=== PATIENT | male | born 1960 | race Caucasian/White ===

== ENCOUNTER → 2017-07-27 | Outpatient (CLI) | payer BC | END | disposition home or self-care (01) | LOC: RAH 13:43 | PROVIDERS: ATTEND Physical Medicine & Rehabilitation | DX: M47.896 Other spondylosis, lumbar region (principal) | CPT/HCPCS: 72114 ==

== ENCOUNTER → 2018-08-22 | Outpatient (CLI) | payer BC | END | disposition home or self-care (01) | LOC: RAH 07:56 | PROVIDERS: ATTEND Physical Medicine & Rehabilitation | DX: M47.816 Spondylosis without myelopathy or radiculopathy, lumbar region (principal); M48.061 Spinal stenosis, lumbar region without neurogenic claudication; M48.05 Spinal stenosis, thoracolumbar region | CPT/HCPCS: 72148 ==

== ENCOUNTER → 2022-08-20 | Outpatient (CLI) | payer BC ==
[2022-08-20 16:29] LABS: CREATININE 0.9 mg/dL (0.5-1.5)
== END | disposition home or self-care (01) ==
LOC: LAB 14:06
PROVIDERS: ATTEND Internal Medicine
DX: I10 Essential (primary) hypertension (principal); I25.118 Atherosclerotic heart disease of native coronary artery with other forms of angina pectoris
CPT/HCPCS: 36415; 82565; 84520

== ENCOUNTER → 2022-08-26 | Outpatient (CLI) | payer BC ==
[~2022-08-26] MED LIST: IOHEXOL 350 MG/ML 100ML INFUS..BTL IV ONE
== END | disposition home or self-care (01) ==
LOC: RAH 08:07
PROVIDERS: ATTEND Internal Medicine
DX: I25.118 Atherosclerotic heart disease of native coronary artery with other forms of angina pectoris (principal)
CPT/HCPCS: 75574; Q9967

== ENCOUNTER 2022-09-11 14:46 | Inpatient (IN) | payer BC ==
[~2022-09-11] VITALS: Ht 182.9 cm; Wt 90.7 kg
[2022-09-11 15:15] LABS: EOSINOPHILS % (AUTO) 1.4 % (0.0-8.0); HEMATOCRIT 39.1 % (42-54); LYMPHOCYTES % (AUTO) 16.3 % (21.0-51.0); MEAN CORPUSCULAR HEMOGLOBIN 31.9 pg (27.0-33.0); MEAN CORPUSCULAR HGB CONC 35.3 g/dL (32.0-36.0); MEAN CORPUSCULAR VOLUME 90.3 fL (79-99); MONOCYTES % (AUTO) 6.3 % (3.0-13.0); NEUTROPHILS % (AUTO) 74.6 % (40.0-77.0); PLATELET COUNT (AUTO) 160 K/uL (130-400); RED BLOOD CELL COUNT(AUTO) 4.33 MIL/uL (4.50-6.20); RED CELL DISTRIBUTION WIDTH 14.4 % (11.0-15.5); WHITE BLOOD COUNT (AUTO) 7.3 K/uL (4.8-10.8)
[2022-09-11 15:33] LABS: TOTAL PROTEIN, SERUM 6.7 g/dL (6.0-8.3)
[2022-09-11 19:39] LABS: APPEARANCE,URINE CLEAR (CLEAR); BILIRUBIN,URINE NEGATIVE (NEGATIVE); COLOR,URINE YELLOW (YELLOW); GLUCOSE, URINE (UA) NEGATIVE (NEGATIVE); KETONES,URINE NEGATIVE (NEGATIVE); LEUKOCYTE ESTERASE ,URINE NEGATIVE Leu/uL (NEGATIVE); NITRATE,URINE NEGATIVE (NEGATIVE); OCCULT BLOOD,URINE NEGATIVE (NEGATIVE); PH,URINE 5.5 (5.0-8.0); PROTEIN,URINE NEGATIVE (NEGATIVE); UROBILINOGEN,URINE 3 mg/dL (0.2-1.0)
[2022-09-11] MEDS ORDERED: ASPIRIN 81MG CHEW TAB PO ONE (22:00)
[2022-09-11] MEDS ORDERED: MAGNESIUM 2GM PREMIX 50ML 50 ML IV PRN (22:00)
[2022-09-11] MEDS ORDERED: POTASSIUM CHLORIDE 10% ELIXIR 20 MEQ/15 ML UDCUP PO PRN (22:00)
[2022-09-11] MEDS ORDERED: ACETAMINOPHEN 325 MG TAB PO PRN ×2 (22:00)
[2022-09-11] MEDS ORDERED: MORPHINE 4 MG SYG IV PRN (22:00)
[2022-09-11] MEDS ORDERED: ONDANSETRON 4MG INJ IV PRN (22:00)
[2022-09-11] MEDS ORDERED: MORPHINE 2 MG SYG IV PRN (22:00)
[2022-09-11] MEDS ORDERED: POTASSIUM CHLORIDE 20MEQ/100ML 100 ML IV PRN (22:00)
[2022-09-11] MEDS ORDERED: KCL 20 MEQ ERTAB PO PRN (22:00)
[2022-09-11] MEDS: NITROGLYCERIN 1GM OINT 1 INCH/1GM TD SCH (23:16)
[2022-09-11 23:40] VITALS: BP 140/51; PULSE 54; RESP 20
[2022-09-12] MEDS ORDERED: ASPI-1443 PO (00:15)
[2022-09-12] MEDS ORDERED: METO-408 PO (00:15)
[2022-09-12] MEDS ORDERED: LOSA50TA64 PO (00:15)
[2022-09-12] MEDS ORDERED: CLOP75TA32 PO (00:15)
[2022-09-12] MEDS ORDERED: ROSU5TAB12 PO (00:15)
[2022-09-12] MEDS ORDERED: ISOS60TA77 PO (00:15)
[2022-09-12 04:00] VITALS: BP 150/55; PULSE 55; RESP 20
[2022-09-12] MEDS: NITROGLYCERIN 1GM OINT 1 INCH/1GM TD SCH (05:27)
[2022-09-12 06:22] LABS: BASOPHILS % (AUTO) 1.4 % (0.0-5.0); EOSINOPHILS % (AUTO) 2.1 % (0.0-8.0); HEMATOCRIT 38.1 % (42-54); LYMPHOCYTES % (AUTO) 24.5 % (21.0-51.0); MEAN CORPUSCULAR HEMOGLOBIN 31.8 pg (27.0-33.0); MEAN CORPUSCULAR HGB CONC 35.2 g/dL (32.0-36.0); MEAN CORPUSCULAR VOLUME 90.5 fL (79-99); MONOCYTES % (AUTO) 10.5 % (3.0-13.0); NEUTROPHILS % (AUTO) 60.8 % (40.0-77.0); PLATELET COUNT (AUTO) 136 K/uL (130-400); RED BLOOD CELL COUNT(AUTO) 4.21 MIL/uL (4.50-6.20); RED CELL DISTRIBUTION WIDTH 14.6 % (11.0-15.5); WHITE BLOOD COUNT (AUTO) 4.3 K/uL (4.8-10.8)
[2022-09-12 06:39] LABS: MAGNESIUM 2.2 mg/dL (1.80-2.40); PHOSPHORUS 3.7 mg/dL (2.5-4.9); POTASSIUM 3.9 mmol/L (3.5-5.1)
[2022-09-12 07:41] VITALS: BP 131/52; PULSE 57; RESP 20
[2022-09-12] MEDS: METOPROLOL TARTRATE 25 MG TAB PO SCH ×2 (08:11→20:48)
[2022-09-12] MEDS: ENOXAPARIN SODIUM 40 MG/0.4 ML SYRINGE SQ SCH (08:21)
[2022-09-12] MEDS: FAMOTIDINE 20MG VIAL IV SCH (08:23)
[2022-09-12] MEDS: ASPIRIN 81MG CHEW TAB PO SCH (08:27)
[2022-09-12] MEDS: CLOPIDOGREL 75MG TAB PO SCH (08:27)
[2022-09-12] MEDS ORDERED: LISINOPRIL 10 MG TABLET PO SCH (09:00)
[2022-09-12] MEDS: LOSARTAN 50 MG TABLET PO SCH (09:00)
[2022-09-12] MEDS ORDERED: ISOSORBIDE MONO 60MG SR TAB PO SCH (09:00)
[2022-09-12 11:21] VITALS: BP 105/60; PULSE 57; RESP 17
[2022-09-12 16:37] VITALS: BP 129/60; PULSE 55; RESP 16
[2022-09-12] MEDS: ATORVASTATIN 40 MG TABLET PO SCH (20:46)
[2022-09-13] VITALS (7 sets, daily range): BP systolic 93–114; BP diastolic 49–60; PULSE 48–114; RESP 16–20
[2022-09-13] MEDS: FAMOTIDINE 20MG VIAL IV SCH (08:35)
[2022-09-13] MEDS: ASPIRIN 81MG CHEW TAB PO SCH (08:35)
[2022-09-13] MEDS: LOSARTAN 50 MG TABLET PO SCH (08:35)
[2022-09-13] MEDS: CLOPIDOGREL 75MG TAB PO SCH (08:36)
[2022-09-13] MEDS: ISOSORBIDE MONO 60MG SR TAB PO SCH (08:38)
[2022-09-13] MEDS: METOPROLOL TARTRATE 25 MG TAB PO SCH ×2 (08:38→21:01)
[2022-09-13] MEDS: ENOXAPARIN SODIUM 40 MG/0.4 ML SYRINGE SQ SCH (08:41)
[2022-09-13] MEDS: ATORVASTATIN 40 MG TABLET PO SCH (21:01)
[2022-09-13 21:47] LABS: APPEARANCE,URINE CLEAR (CLEAR); BILIRUBIN,URINE NEGATIVE (NEGATIVE); COLOR,URINE YELLOW (YELLOW); GLUCOSE, URINE (UA) NEGATIVE (NEGATIVE); KETONES,URINE NEGATIVE (NEGATIVE); LEUKOCYTE ESTERASE ,URINE NEGATIVE Leu/uL (NEGATIVE); NITRATE,URINE NEGATIVE (NEGATIVE); OCCULT BLOOD,URINE NEGATIVE (NEGATIVE); PH,URINE 5.5 (5.0-8.0); PROTEIN,URINE NEGATIVE (NEGATIVE); UROBILINOGEN,URINE 3 mg/dL (0.2-1.0)
[2022-09-13 21:50] LABS: RBC,URINE 0-1 /HPF (0-1); SQUAMOUS EPITHELIAL CELL,UR RARE /HPF (0-2); WBC,URINE 0-1 /HPF (0-1)
[2022-09-14] VITALS (18 sets, daily range): BP systolic 99–141; BP diastolic 48–88; PULSE 47–62; RESP 16–19; O2SAT 97
[2022-09-14 03:35] LABS: BASOPHILS % (AUTO) 1.5 % (0.0-5.0); EOSINOPHILS % (AUTO) 1.8 % (0.0-8.0); LYMPHOCYTES % (AUTO) 27.1 % (21.0-51.0); MEAN CORPUSCULAR HEMOGLOBIN 31.9 pg (27.0-33.0); MEAN CORPUSCULAR HGB CONC 34.6 g/dL (32.0-36.0); MEAN CORPUSCULAR VOLUME 92.2 fL (79-99); MONOCYTES % (AUTO) 9.3 % (3.0-13.0); NEUTROPHILS % (AUTO) 59.6 % (40.0-77.0); PLATELET COUNT (AUTO) 147 K/uL (130-400); RED BLOOD CELL COUNT(AUTO) 4.23 MIL/uL (4.50-6.20); RED CELL DISTRIBUTION WIDTH 14.5 % (11.0-15.5); WHITE BLOOD COUNT (AUTO) 4.5 K/uL (4.8-10.8)
[2022-09-14 03:46] LABS: ALBUMIN 3.5 g/dL (3.5-5.0); CREATININE 1.1 mg/dL (0.5-1.5); POTASSIUM 4.5 mmol/L (3.5-5.1)
[2022-09-14 03:48] LABS: INR 0.98 (0.85-1.15); PROTHROMBIN TIME 11.4 SEC (9.6-11.6)
[2022-09-14 03:49] LABS: PARTIAL THROMBOPLASTIN TIME 26.3 SEC (26.3-35.5)
[2022-09-14] MEDS ORDERED: 0.9% NACL 500ML IV.SOLN 500 ML IV SCH (05:00)
[2022-09-14] MEDS ORDERED: FENTANYL CITRATE PF 50 MCG/1 ML 2ML VIAL ONE (08:48)
[2022-09-14] MEDS ORDERED: LIDOCAINE HCL 400MG/20ML VIAL ONE (08:48)
[2022-09-14] MEDS ORDERED: HEPARIN 10,000 UNIT/10ML (1,000 UNIT/ML) VIAL ONE (08:49)
[2022-09-14] MEDS ORDERED: IOHEXOL-350 75 ML VIAL IV ONE (08:49)
[2022-09-14] MEDS ORDERED: MIDAZOLAM HCL 1 MG/ML 2ML VIAL ONE (08:49)
[2022-09-14] MEDS ORDERED: NITROGLYCERIN 50MG VIAL ONE (08:49)
[2022-09-14] MEDS ORDERED: IOHEXOL 350 MG/ML 100ML INFUS..BTL IV ONE (08:49)
[2022-09-14] MEDS ORDERED: VERAPAMIL HCL 2.5 MG/ML VIAL ONE (08:49)
[2022-09-14] MEDS: METOPROLOL TARTRATE 25 MG TAB PO SCH ×2 (09:00→21:26)
[2022-09-14] MEDS: ASPIRIN 81MG CHEW TAB PO SCH (09:00)
[2022-09-14] MEDS: ENOXAPARIN SODIUM 40 MG/0.4 ML SYRINGE SQ SCH (09:00)
[2022-09-14] MEDS ORDERED: 0.9%NACL 1000ML 1,000 ML IV SCH (10:30)
[2022-09-14] MEDS: ISOSORBIDE MONO 60MG SR TAB PO SCH (11:27)
[2022-09-14] MEDS: FAMOTIDINE 20MG VIAL IV SCH (11:27)
[2022-09-14] MEDS: LOSARTAN 50 MG TABLET PO SCH (11:27)
[2022-09-14 14:41] LABS: ABG BASE EXCESS -0.7 mmol/L (-2.0-3.0); ABG HCO3 23.2 mmol/L (21.0-28.0); ABG OXYGEN SATURATION 95.8 % (95.0-99.0); ABG PCO2 36 mmHg (35-48)
[2022-09-14] MEDS: ATORVASTATIN 40 MG TABLET PO SCH (21:24)
[2022-09-15] VITALS (7 sets, daily range): BP systolic 109–123; BP diastolic 53–68; PULSE 52–61; RESP 17–20; O2SAT 97
[2022-09-15 05:59] LABS: BASOPHILS % (AUTO) 1.1 % (0.0-5.0); EOSINOPHILS % (AUTO) 1.9 % (0.0-8.0); HEMATOCRIT 39.1 % (42-54); LYMPHOCYTES % (AUTO) 21.9 % (21.0-51.0); MEAN CORPUSCULAR HEMOGLOBIN 31.6 pg (27.0-33.0); MEAN CORPUSCULAR HGB CONC 34.8 g/dL (32.0-36.0); MEAN CORPUSCULAR VOLUME 90.9 fL (79-99); MONOCYTES % (AUTO) 9.7 % (3.0-13.0); PLATELET COUNT (AUTO) 137 K/uL (130-400); RED CELL DISTRIBUTION WIDTH 14.6 % (11.0-15.5); WHITE BLOOD COUNT (AUTO) 4.7 K/uL (4.8-10.8)
[2022-09-15 06:21] LABS: ALBUMIN 3.6 g/dL (3.5-5.0); POTASSIUM 4.5 mmol/L (3.5-5.1); TOTAL PROTEIN, SERUM 6.2 g/dL (6.0-8.3)
[2022-09-15] MEDS: METOPROLOL TARTRATE 25 MG TAB PO SCH ×2 (09:00→20:57)
[2022-09-15] MEDS: ENOXAPARIN SODIUM 40 MG/0.4 ML SYRINGE SQ SCH (09:56)
[2022-09-15] MEDS: LOSARTAN 50 MG TABLET PO SCH (09:56)
[2022-09-15] MEDS: FAMOTIDINE 20MG VIAL IV SCH (09:56)
[2022-09-15] MEDS: ASPIRIN 81MG CHEW TAB PO SCH (09:56)
[2022-09-15] MEDS: ISOSORBIDE MONO 60MG SR TAB PO SCH (09:56)
[2022-09-15] MEDS: ATORVASTATIN 40 MG TABLET PO SCH (20:55)
[2022-09-16 05:00] VITALS: BP 123/49; PULSE 57; RESP 17
[2022-09-16 05:38] LABS: EOSINOPHILS % (AUTO) 1.7 % (0.0-8.0); HEMATOCRIT 40.1 % (42-54); LYMPHOCYTES % (AUTO) 19.2 % (21.0-51.0); MEAN CORPUSCULAR HEMOGLOBIN 31.9 pg (27.0-33.0); MEAN CORPUSCULAR HGB CONC 34.4 g/dL (32.0-36.0); MEAN CORPUSCULAR VOLUME 92.6 fL (79-99); NEUTROPHILS % (AUTO) 68.5 % (40.0-77.0); PLATELET COUNT (AUTO) 149 K/uL (130-400); RED BLOOD CELL COUNT(AUTO) 4.33 MIL/uL (4.50-6.20); RED CELL DISTRIBUTION WIDTH 14.5 % (11.0-15.5); WHITE BLOOD COUNT (AUTO) 5.2 K/uL (4.8-10.8)
[2022-09-16 06:03] LABS: ALBUMIN 3.6 g/dL (3.5-5.0); CREATININE 0.9 mg/dL (0.5-1.5); POTASSIUM 4.1 mmol/L (3.5-5.1); TOTAL PROTEIN, SERUM 6.5 g/dL (6.0-8.3)
[2022-09-16 08:00] VITALS: BP 136/74; PULSE 58; RESP 18
[2022-09-16 08:15] VITALS: O2SAT 97
[2022-09-16] MEDS: METOPROLOL TARTRATE 25 MG TAB PO SCH ×3 (09:37→20:12)
[2022-09-16] MEDS: ISOSORBIDE MONO 60MG SR TAB PO SCH (09:37)
[2022-09-16] MEDS: LOSARTAN 50 MG TABLET PO SCH (09:38)
[2022-09-16] MEDS: ASPIRIN 81MG CHEW TAB PO SCH (09:38)
[2022-09-16] MEDS: ENOXAPARIN SODIUM 40 MG/0.4 ML SYRINGE SQ SCH (09:39)
[2022-09-16] MEDS: FAMOTIDINE 20MG VIAL IV SCH (09:39)
[2022-09-16] MEDS ORDERED: CEFAZOLIN SODIUM 1 GM VIAL IVPB SCH (12:00)
[2022-09-16 12:01] VITALS: BP 145/76; PULSE 61; RESP 18
[2022-09-16 16:00] VITALS: BP 112/58; PULSE 54; RESP 18
[2022-09-16 20:00] VITALS: BP 116/58; PULSE 54; RESP 19; O2SAT 98
[2022-09-16] MEDS: ATORVASTATIN 40 MG TABLET PO SCH (20:05)
[2022-09-17] VITALS (54 sets, daily range): BP systolic 97–157; BP diastolic 47–140; PULSE 52–90; RESP 4–23; TEMP 97.7–100.2; O2SAT 96–100
[2022-09-17 05:47] LABS: HEMATOCRIT 40.7 % (42-54); MEAN CORPUSCULAR HEMOGLOBIN 31.6 pg (27.0-33.0); MEAN CORPUSCULAR HGB CONC 34.4 g/dL (32.0-36.0); MEAN CORPUSCULAR VOLUME 91.9 fL (79-99); RED BLOOD CELL COUNT(AUTO) 4.43 MIL/uL (4.50-6.20); RED CELL DISTRIBUTION WIDTH 14.8 % (11.0-15.5); WHITE BLOOD COUNT (AUTO) 5.1 K/uL (4.8-10.8)
[2022-09-17 05:54] LABS: INR 0.98 (0.85-1.15); PROTHROMBIN TIME 11.4 SEC (9.6-11.6)
[2022-09-17 05:55] LABS: PARTIAL THROMBOPLASTIN TIME 26.8 SEC (26.3-35.5)
[2022-09-17 05:57] LABS: POTASSIUM 4.3 mmol/L (3.5-5.1)
[2022-09-17] MEDS ORDERED: CEFAZOLIN SODIUM 1 GM VIAL IVPB SCH (06:00)
[2022-09-17 06:01] LABS: ALBUMIN 3.6 g/dL (3.5-5.0); TOTAL PROTEIN, SERUM 6.7 g/dL (6.0-8.3)
[2022-09-17 06:08] LABS: HEMOGLOBIN A1C 4.6 % (4.0-6.0)
[2022-09-17] MEDS ORDERED: EPINEPHRINE PF 1MG (1:1,000) 10 MG in 0.9% NACL 250ML 240 ML IV PRN ×2 (08:00→08:30)
[2022-09-17] MEDS ORDERED: NOREPINEPHRINE BITARTRATE 8 MG in DEXTROSE 5%-WATER 250 ML IV PRN (08:00)
[2022-09-17] MEDS ORDERED: AMINOCAPROIC ACID 5,000MG VIAL 15,000 MG in 0.9% NACL 500ML IV.SOLN 420 ML IV PRN (08:00)
[2022-09-17] MEDS ORDERED: NITROGLYCERIN 50MG/D5W 250ML 250 BOT IV SCH (08:30)
[2022-09-17] MEDS ORDERED: GLUCAGON 1MG KIT 1 MG ML IM PRN (08:30)
[2022-09-17] MEDS ORDERED: POTASSIUM PHOS 15 mMOL+NS250ML 250 ML IV PRN (08:30)
[2022-09-17] MEDS ORDERED: ALBUMIN (HUMAN) 5% 250 ML IV PRN (08:30)
[2022-09-17] MEDS ORDERED: MORPHINE 2 MG SYG IV PRN ×2 (08:30)
[2022-09-17] MEDS ORDERED: DEXTROSE 50%-WATER 50 ML DISP.SYRIN IV PRN (08:30)
[2022-09-17] MEDS ORDERED: LACTULOSE 20 GM/30 ML UDCUP PO PRN (08:30)
[2022-09-17] MEDS ORDERED: CALCIUM GLUC 1GM 1 GM in 0.9%NACL 50ML 50 ML IV PRN (08:30)
[2022-09-17] MEDS ORDERED: 0.9% NACL 500ML IV.SOLN 500 ML IV SCH (08:30)
[2022-09-17] MEDS ORDERED: AMINOCAPROIC ACID 5,000MG VIAL 15,000 MG in 0.9% NACL 250ML 250 ML IV SCH (08:30)
[2022-09-17] MEDS ORDERED: ACETAMINOPHEN 650 MG SUPPOSITORY RC PRN (08:30)
[2022-09-17] MEDS ORDERED: MAGNESIUM HYDROXIDE 30 ML/UDCUP PO PRN (08:30)
[2022-09-17] MEDS ORDERED: PROPOFOL 1000 MG/100 ML 100 ML IV PRN (08:30)
[2022-09-17] MEDS ORDERED: 0.9%NACL 10ML VIAL IVP PRN (08:30)
[2022-09-17] MEDS ORDERED: NOREPINEPHRIN 4MG/NS 250ML 250 ML IV PRN (08:30)
[2022-09-17] MEDS ORDERED: 0.9%NACL 1000ML 1,000 ML IV SCH (08:30)
[2022-09-17] MEDS ORDERED: NOREPINEPHRINE BITARTRATE 8 MG in 0.9% NACL 250ML 250 ML IV PRN (09:00)
[2022-09-17] MEDS ORDERED: ESMOLOL HCL 10 MG/ML 10 ML VIAL ONE (09:11)
[2022-09-17] MEDS ORDERED: PROTAMINE SULFATE 10 MG/ML 25ML VIAL IV ONE (09:11)
[2022-09-17] MEDS ORDERED: SODIUM BICARB 50MEQ 50ML VIAL 150 ML ONE (09:11)
[2022-09-17] MEDS ORDERED: PROPOFOL 10 MG/ML 20ML VIAL IV ONE (09:11)
[2022-09-17] MEDS ORDERED: HEPARIN 10,000 UNIT/10ML (1,000 UNIT/ML) VIAL ONE (09:11)
[2022-09-17] MEDS ORDERED: LIDOCAINE PF 100MG/5ML (2%) SYRINGE 5ML ONE (09:11)
[2022-09-17] MEDS ORDERED: NOREPINEPHRINE BITARTRATE 1 MG/1 ML ML IV ONE (09:11)
[2022-09-17] MEDS ORDERED: EPINEPHRINE PF 1MG (1:1,000) 1 MG/ML AMP ONE (09:11)
[2022-09-17] MEDS ORDERED: AMINOCAPROIC ACID 5,000MG VIAL ONE (09:11)
[2022-09-17] MEDS ORDERED: MIDAZOLAM HCL 1 MG/ML 2ML VIAL ONE (09:12)
[2022-09-17] MEDS ORDERED: FENTANYL CITRATE PF 50 MCG/1 ML 20ML VIAL IJ ONE (09:12)
[2022-09-17] MEDS ORDERED: ROCURONIUM 10MG/1ML SYR 10 MG/ML ML ONE (09:12)
[2022-09-17] MEDS ORDERED: KETAMINE 50MG/ML SYRINGE 50 MG/ML DISP.SYRIN ONE ×2 (09:21→11:51)
[2022-09-17] MEDS ORDERED: MIDAZOLAM HCL 1 MG/ML 5ML VIAL ONE (09:22)
[2022-09-17] MEDS ORDERED: CEFAZOLIN SODIUM 2 GM VIAL IVPB ONE (10:00)
[2022-09-17] MEDS ORDERED: CEFAZOLIN SODIUM 1 GM VIAL IRRIG ONE (10:10)
[2022-09-17] MEDS ORDERED: PAPAVERINE HCL 30 MG/ML 2ML VIAL IRRIG ONE (10:10)
[2022-09-17] MEDS ORDERED: GLYCOPYRROLATE 1 MG/5 ML SYRINGE ONE (11:59)
[2022-09-17] MEDS ORDERED: PROTAMINE SULFATE 10 MG/ML 5 ML VIAL ONE (11:59)
[2022-09-17] MEDS ORDERED: ASPIRIN 81MG CHEW TAB NG ONE (12:00)
[2022-09-17 12:48] LABS: ABG BASE EXCESS -1.1 mmol/L (-2.0-3.0); ABG HCO3 23.7 mmol/L (21.0-28.0); ABG OXYGEN SATURATION 99.5 % (95.0-99.0); ABG PCO2 40 mmHg (35-48)
[2022-09-17] MEDS: DOCUSATE SODIUM 100 MG CAP PO SCH ×2 (13:00→19:30)
[2022-09-17] MEDS: FAMOTIDINE 20MG VIAL IV SCH ×2 (13:00→19:30)
[2022-09-17] MEDS: SODIUM BICARB 50MEQ 50ML VIAL IV PRN ×3 (13:07→16:13)
[2022-09-17] MEDS: INSULIN REGULAR 100 UNIT in 0.9%NACL 100ML IV SCH (13:09)
[2022-09-17 13:11] LABS: HEMATOCRIT 36.1 % (42-54); MEAN CORPUSCULAR HEMOGLOBIN 32.1 pg (27.0-33.0); MEAN CORPUSCULAR HGB CONC 35.7 g/dL (32.0-36.0); MEAN CORPUSCULAR VOLUME 89.8 fL (79-99); RED BLOOD CELL COUNT(AUTO) 4.02 MIL/uL (4.50-6.20); RED CELL DISTRIBUTION WIDTH 14.6 % (11.0-15.5); WHITE BLOOD COUNT (AUTO) 19.6 K/uL (4.8-10.8)
[2022-09-17] MEDS: CEFAZOLIN SODIUM 2 GM VIAL IVPB SCH ×2 (13:11→19:31)
[2022-09-17 13:23] LABS: CREATININE 0.9 mg/dL (0.5-1.5); INR 1.07 (0.85-1.15); MAGNESIUM 1.5 mg/dL (1.80-2.40); PHOSPHORUS 4.2 mg/dL (2.5-4.9); PROTHROMBIN TIME 12.4 SEC (9.6-11.6)
[2022-09-17] MEDS: TRAMADOL HCL 50 MG TABLET PO PRN ×2 (13:56→19:30)
[2022-09-17 14:07] LABS: ABG BASE EXCESS -1.5 mmol/L (-2.0-3.0); ABG HCO3 22.8 mmol/L (21.0-28.0); ABG OXYGEN SATURATION 99.3 % (95.0-99.0); ABG PCO2 37 mmHg (35-48)
[2022-09-17 14:15] LABS: PARTIAL THROMBOPLASTIN TIME 20.2 SEC (26.3-35.5)
[2022-09-17] MEDS: POTASSIUM CHLORIDE 20MEQ/100ML 100 ML IV PRN ×2 (14:28→17:39)
[2022-09-17] MEDS: MAGNESIUM 2GM PREMIX 50ML 50 ML IV PRN (14:30)
[2022-09-17 14:59] LABS: ABG BASE EXCESS 0.6 mmol/L (-2.0-3.0); ABG HCO3 25.2 mmol/L (21.0-28.0); ABG OXYGEN SATURATION 98.7 % (95.0-99.0); ABG PCO2 40 mmHg (35-48)
[2022-09-17] MEDS: ACETAMINOPHEN 325 MG TAB PO PRN ×2 (15:47→21:59)
[2022-09-17 16:07] LABS: ABG BASE EXCESS -1.1 mmol/L (-2.0-3.0); ABG HCO3 23.5 mmol/L (21.0-28.0); ABG OXYGEN SATURATION 98.2 % (95.0-99.0); ABG PCO2 39 mmHg (35-48)
[2022-09-17 16:59] LABS: ABG BASE EXCESS 1.8 mmol/L (-2.0-3.0); ABG HCO3 26.2 mmol/L (21.0-28.0); ABG OXYGEN SATURATION 98.2 % (95.0-99.0); ABG PCO2 40 mmHg (35-48)
[2022-09-17 17:02] LABS: ABG HCO3 26.3 mmol/L (21.0-28.0); ABG OXYGEN SATURATION 98.3 % (95.0-99.0); ABG PCO2 40 mmHg (35-48)
[2022-09-17 17:36] LABS: MAGNESIUM 2.1 mg/dL (1.80-2.40); POTASSIUM 3.6 mmol/L (3.5-5.1)
[2022-09-17] MEDS: HYDROCODONE/ACETAMINOPHEN 10/325 MG TAB PO PRN (18:28)
[2022-09-17 18:30] LABS: ABG BASE EXCESS 2.5 mmol/L (-2.0-3.0); ABG HCO3 27.6 mmol/L (21.0-28.0); ABG OXYGEN SATURATION 96.1 % (95.0-99.0); ABG PCO2 44 mmHg (35-48)
[2022-09-18] VITALS (73 sets, daily range): BP systolic 99–271; BP diastolic 43–250; PULSE 56–87; RESP 5–76; TEMP 100–100.2; O2SAT 95–98
[2022-09-18] MEDS: HYDROCODONE/ACETAMINOPHEN 10/325 MG TAB PO PRN ×3 (00:05→11:35)
[2022-09-18] MEDS: TRAMADOL HCL 50 MG TABLET PO PRN ×3 (02:58→17:42)
[2022-09-18 04:19] LABS: ABG HCO3 25.2 mmol/L (21.0-28.0); ABG OXYGEN SATURATION 98.1 % (95.0-99.0); ABG PCO2 39 mmHg (35-48)
[2022-09-18] MEDS: POTASSIUM CHLORIDE 20MEQ/100ML 100 ML IV PRN (04:21)
[2022-09-18 04:37] LABS: HEMATOCRIT 36.9 % (42-54); MEAN CORPUSCULAR HGB CONC 34.7 g/dL (32.0-36.0); MEAN CORPUSCULAR VOLUME 92.3 fL (79-99); RED CELL DISTRIBUTION WIDTH 14.9 % (11.0-15.5); WHITE BLOOD COUNT (AUTO) 16.6 K/uL (4.8-10.8)
[2022-09-18] MEDS: CEFAZOLIN SODIUM 2 GM VIAL IVPB SCH (04:40)
[2022-09-18 04:56] LABS: INR 1.14 (0.85-1.15); PROTHROMBIN TIME 13.1 SEC (9.6-11.6)
[2022-09-18 04:57] LABS: PARTIAL THROMBOPLASTIN TIME 28.8 SEC (26.3-35.5)
[2022-09-18 05:01] LABS: CREATININE 0.9 mg/dL (0.5-1.5); MAGNESIUM 1.8 mg/dL (1.80-2.40); PHOSPHORUS 4.2 mg/dL (2.5-4.9); POTASSIUM 4.1 mmol/L (3.5-5.1)
[2022-09-18] MEDS: MAGNESIUM 2GM PREMIX 50ML 50 ML IV PRN (06:56)
[2022-09-18] MEDS: DOCUSATE SODIUM 100 MG CAP PO SCH ×2 (08:11→20:19)
[2022-09-18] MEDS: FAMOTIDINE 20MG VIAL IV SCH ×2 (08:11→20:19)
[2022-09-18] MEDS: POLYETHYLENE GLYCOL 3350 17 GM POWD.PACK PO SCH (09:37)
[2022-09-18] MEDS: FUROSEMIDE 20 MG TABLET PO SCH (17:42)
[2022-09-18] MEDS: INSULIN REGULAR 100 UNIT in 0.9%NACL 100ML IV SCH (22:20)
[2022-09-18] MEDS: ACETAMINOPHEN 325 MG TAB PO PRN (22:28)
[2022-09-19] VITALS (46 sets, daily range): BP systolic 96–144; BP diastolic 52–69; PULSE 74–89; RESP 13–25; TEMP 101.9; O2SAT 92–98
[2022-09-19] MEDS: TRAMADOL HCL 50 MG TABLET PO PRN ×2 (02:02→08:25)
[2022-09-19 04:17] LABS: HEMATOCRIT 32.6 % (42-54); MEAN CORPUSCULAR HEMOGLOBIN 31.9 pg (27.0-33.0); MEAN CORPUSCULAR HGB CONC 35.6 g/dL (32.0-36.0); MEAN CORPUSCULAR VOLUME 89.6 fL (79-99); RED BLOOD CELL COUNT(AUTO) 3.64 MIL/uL (4.50-6.20); RED CELL DISTRIBUTION WIDTH 14.8 % (11.0-15.5); WHITE BLOOD COUNT (AUTO) 13.7 K/uL (4.8-10.8)
[2022-09-19 04:28] LABS: POTASSIUM 4.3 mmol/L (3.5-5.1)
[2022-09-19] MEDS: HYDROCODONE/ACETAMINOPHEN 10/325 MG TAB PO PRN (05:38)
[2022-09-19] MEDS: FUROSEMIDE 20 MG TABLET PO SCH ×2 (08:23→16:52)
[2022-09-19] MEDS: DOCUSATE SODIUM 100 MG CAP PO SCH ×2 (08:23→22:03)
[2022-09-19] MEDS: POLYETHYLENE GLYCOL 3350 17 GM POWD.PACK PO SCH (08:23)
[2022-09-19] MEDS: ASPIRIN 81 MG EC TAB PO SCH (08:23)
[2022-09-19] MEDS: FAMOTIDINE 20MG VIAL IV SCH ×2 (08:52→22:04)
[2022-09-19] MEDS: INSULIN HUMULIN R 100 UNIT/ML 3ML SQ SCH ×3 (11:30→21:00)
[2022-09-19] MEDS ORDERED: GLUCAGON 1MG KIT 1 MG ML IM PRN (12:00)
[2022-09-19] MEDS ORDERED: DEXTROSE 50%-WATER 50 ML DISP.SYRIN IV PRN (12:00)
[2022-09-19] MEDS: ACETAMINOPHEN 325 MG TAB PO PRN (16:59)
[2022-09-19] MEDS ORDERED: METOPROLOL SUCCINATE 25 MG TAB.SR.24H PO SCH (21:00)
[2022-09-19] MEDS ORDERED: ATORVASTATIN 20 MG TABLET PO SCH (21:00)
[2022-09-19] MEDS: ATORVASTATIN 20 MG TABLET PO SCH (22:03)
[2022-09-19] MEDS: METOPROLOL TARTRATE 25 MG TAB PO SCH (22:03)
[2022-09-19] MEDS: ONDANSETRON 4MG INJ IV PRN (22:03)
[2022-09-20] VITALS (7 sets, daily range): BP systolic 102–129; BP diastolic 60–69; PULSE 71–79; RESP 18–20; O2SAT 95
[2022-09-20 04:02] LABS: HEMATOCRIT 30.7 % (42-54); MEAN CORPUSCULAR HEMOGLOBIN 32.3 pg (27.0-33.0); MEAN CORPUSCULAR HGB CONC 35.5 g/dL (32.0-36.0); MEAN CORPUSCULAR VOLUME 91.1 fL (79-99); RED BLOOD CELL COUNT(AUTO) 3.37 MIL/uL (4.50-6.20); RED CELL DISTRIBUTION WIDTH 14.6 % (11.0-15.5); WHITE BLOOD COUNT (AUTO) 11.5 K/uL (4.8-10.8)
[2022-09-20 04:20] LABS: CREATININE 0.9 mg/dL (0.5-1.5); POTASSIUM 4.1 mmol/L (3.5-5.1)
[2022-09-20] MEDS: INSULIN HUMULIN R 100 UNIT/ML 3ML SQ SCH ×4 (07:30→21:29)
[2022-09-20] MEDS ORDERED: LISINOPRIL 5 MG TABLET PO ONE (09:00)
[2022-09-20] MEDS: LISINOPRIL 2.5 MG TABLET PO SCH (09:15)
[2022-09-20] MEDS: DOCUSATE SODIUM 100 MG CAP PO SCH ×2 (09:15→21:27)
[2022-09-20] MEDS: POLYETHYLENE GLYCOL 3350 17 GM POWD.PACK PO SCH (09:15)
[2022-09-20] MEDS: METOPROLOL TARTRATE 25 MG TAB PO SCH ×2 (09:15→21:27)
[2022-09-20] MEDS: ASPIRIN 81 MG EC TAB PO SCH (09:16)
[2022-09-20] MEDS: FUROSEMIDE 20 MG TABLET PO SCH ×2 (09:16→17:13)
[2022-09-20] MEDS: FAMOTIDINE 20MG VIAL IV SCH ×2 (09:35→21:27)
[2022-09-20] MEDS: ONDANSETRON 4MG INJ IV PRN (17:17)
[2022-09-20] MEDS: ATORVASTATIN 20 MG TABLET PO SCH (21:27)
[2022-09-20] MEDS: ENOXAPARIN SODIUM 30 MG/0.3 ML SQ SCH (21:28)
[2022-09-21] VITALS (9 sets, daily range): BP systolic 93–130; BP diastolic 53–72; PULSE 63–77; RESP 18; O2SAT 95
[2022-09-21 04:46] LABS: HEMATOCRIT 30.2 % (42-54); MEAN CORPUSCULAR HEMOGLOBIN 31.8 pg (27.0-33.0); MEAN CORPUSCULAR HGB CONC 34.8 g/dL (32.0-36.0); MEAN CORPUSCULAR VOLUME 91.5 fL (79-99); RED BLOOD CELL COUNT(AUTO) 3.3 MIL/uL (4.50-6.20); RED CELL DISTRIBUTION WIDTH 14.5 % (11.0-15.5); WHITE BLOOD COUNT (AUTO) 9.7 K/uL (4.8-10.8)
[2022-09-21 05:06] LABS: POTASSIUM 3.7 mmol/L (3.5-5.1)
[2022-09-21] MEDS: INSULIN HUMULIN R 100 UNIT/ML 3ML SQ SCH ×4 (07:30→21:00)
[2022-09-21] MEDS: POLYETHYLENE GLYCOL 3350 17 GM POWD.PACK PO SCH (09:00)
[2022-09-21] MEDS: METOPROLOL TARTRATE 25 MG TAB PO SCH ×2 (09:26→21:00)
[2022-09-21] MEDS: FAMOTIDINE 20MG VIAL IV SCH ×2 (09:26→20:57)
[2022-09-21] MEDS: LISINOPRIL 2.5 MG TABLET PO SCH (09:26)
[2022-09-21] MEDS: ASPIRIN 81 MG EC TAB PO SCH (09:27)
[2022-09-21] MEDS: DOCUSATE SODIUM 100 MG CAP PO SCH ×2 (09:27→20:58)
[2022-09-21] MEDS: FUROSEMIDE 20 MG TABLET PO SCH ×2 (09:28→17:09)
[2022-09-21] MEDS: ENOXAPARIN SODIUM 30 MG/0.3 ML SQ SCH (09:28)
[2022-09-21] MEDS: ACETAMINOPHEN 325 MG TAB PO PRN ×2 (09:41→18:29)
[2022-09-21] MEDS ORDERED: KCL 20 MEQ ERTAB PO PRN (17:30)
[2022-09-21] MEDS ORDERED: POTASSIUM CHLORIDE 10% ELIXIR 20 MEQ/15 ML UDCUP PO PRN (17:30)
[2022-09-21] MEDS: ATORVASTATIN 20 MG TABLET PO SCH (20:58)
[2022-09-22 05:15] VITALS: BP 129/64; PULSE 65; RESP 18
[2022-09-22 07:00] VITALS: BP 116/61; PULSE 68; RESP 16
[2022-09-22] MEDS: INSULIN HUMULIN R 100 UNIT/ML 3ML SQ SCH (07:30)
[2022-09-22] MEDS: POLYETHYLENE GLYCOL 3350 17 GM POWD.PACK PO SCH (07:53)
[2022-09-22] MEDS: DOCUSATE SODIUM 100 MG CAP PO SCH (07:53)
[2022-09-22 08:00] VITALS: O2SAT 98
[2022-09-22] MEDS ORDERED: FAMOTIDINE 20MG TAB PO ONE (08:00)
[2022-09-22] MEDS: ASPIRIN 81 MG EC TAB PO SCH (08:02)
[2022-09-22] MEDS: LISINOPRIL 2.5 MG TABLET PO SCH (08:02)
[2022-09-22] MEDS: FUROSEMIDE 20 MG TABLET PO SCH (08:02)
[2022-09-22] MEDS: METOPROLOL TARTRATE 25 MG TAB PO SCH (08:03)
[2022-09-22] MEDS: ENOXAPARIN SODIUM 30 MG/0.3 ML SQ SCH (08:03)
== END 2022-09-22 09:26 | DRG 233 ==
LOC: EDH 14:46 → EDHIP 21:55 → 4CH 23:40 → 2CV 09-17 11:07 → 2BH 09-18 19:40 → 2AH 09-19 13:57
PROVIDERS: ADMIT Internal Medicine; ATTEND Internal Medicine
PROC: 4A023N7 Measurement of Cardiac Sampling and Pressure, Left Heart, Percutaneous Approach (ICD-10-PCS; 2022-09-14)
PROC: B2111ZZ Fluoroscopy of Multiple Coronary Arteries using Low Osmolar Contrast (ICD-10-PCS; 2022-09-14)
PROC: B2151ZZ Fluoroscopy of Left Heart using Low Osmolar Contrast (ICD-10-PCS; 2022-09-14)
PROC: 06BQ4ZZ Excision of Left Saphenous Vein, Percutaneous Endoscopic Approach (ICD-10-PCS; 2022-09-17)
PROC: 0PH000Z Insertion of Rigid Plate Internal Fixation Device into Sternum, Open Approach (ICD-10-PCS; 2022-09-17)
PROC: 5A09357 Assistance with Respiratory Ventilation, Less than 24 Consecutive Hours, Continuous Positive Airway Pressure (ICD-10-PCS; 2022-09-17)
PROC: 02100Z9 Bypass Coronary Artery, One Artery from Left Internal Mammary, Open Approach (ICD-10-PCS; principal; 2022-09-17 09:20)
PROC: 021109W Bypass Coronary Artery, Two Arteries from Aorta with Autologous Venous Tissue, Open Approach (ICD-10-PCS; 2022-09-17 09:20)
PROC: 5A09357 Assistance with Respiratory Ventilation, Less than 24 Consecutive Hours, Continuous Positive Airway Pressure (ICD-10-PCS; 2022-09-20)
DX: T82.855A Stenosis of coronary artery stent, initial encounter (principal); J95.1 Acute pulmonary insufficiency following thoracic surgery; I25.110 Atherosclerotic heart disease of native coronary artery with unstable angina pectoris; Z20.822 Contact with and (suspected) exposure to COVID-19; E78.00 Pure hypercholesterolemia, unspecified; I10 Essential (primary) hypertension; Y83.1 Surgical operation with implant of artificial internal device as the cause of abnormal reaction of the patient, or of later complication, without mention of misadventure at the time of the procedure; M54.10 Radiculopathy, site unspecified; Z95.5 Presence of coronary angioplasty implant and graft; Z79.02 Long term (current) use of antithrombotics/antiplatelets; Z79.82 Long term (current) use of aspirin; Z79.899 Other long term (current) drug therapy; Z82.49 Family history of ischemic heart disease and other diseases of the circulatory system
CPT/HCPCS: 36415; 36600; 71045; 80048; 80053; 80061; 81001; 81003; 82330; 82435; 82803; 82947; 82948; 83036; 83605; 83735; 83880; 84100; 84132; 84295; 84484; 85018; 85025; 85027; 85347; 85610; 85730; 86850; 86900; 86901; 86923; 87635; 87641; 92978; 93005; 93306; 93312; 93458; 93571; 93880; 94002; 94010; 94150; 97039; 99156; 99157; A7048; C1769; C1887; G0378; J0171; J0690; J1644; J1650; J1815; J2001; J2250; J2270; J2405; J2440; J2704; J2720; J3010; J3475; J3480; J3490; J7030; J7040; J7050; J7060; J7120; Q9967; A4215; A4216; A4222; A4223; A4315; A4452; A4649; A5120; A6204; A6219; C1713; C1753; C1776; C1894; Q9965

== ENCOUNTER → 2022-10-15 | Outpatient (CLI) | payer BC ==
[~2022-10-15] MED LIST changes: +ASPI-1443 PO; +CLOP75TA32 PO; -IOHEXOL 350 MG/ML 100ML INFUS..BTL IV ONE; +ISOS60TA77 PO; +LOSA50TA64 PO; +METO-408 PO; +ROSU5TAB12 PO
== END | disposition home or self-care (01) ==
LOC: SHCH 14:03
PROVIDERS: ATTEND Family Medicine
DX: I25.10 Atherosclerotic heart disease of native coronary artery without angina pectoris (principal); Z95.1 Presence of aortocoronary bypass graft
CPT/HCPCS: 76882; 93308

== ENCOUNTER → 2023-10-13 | Outpatient (CLI) | payer BC ==
[~2023-10-13] MED LIST changes: -ROSU5TAB12 PO; +ROSU5TAB43 PO
== END | disposition home or self-care (01) ==
LOC: RAH 12:37
PROVIDERS: ATTEND Internal Medicine
DX: G81.90 Hemiplegia, unspecified affecting unspecified side (principal)
CPT/HCPCS: 70450